=== PATIENT | female | born 1985 | race Caucasian/White ===

== ENCOUNTER → 2018-03-04 16:00 | Outpatient (CLI) | payer MEDICAID, SELFPAY ==
[2018-03-05 12:52] LABS: Group B Strep DNA By PCR POSITIVE (Negative); Probe Check PASS
== END ==
PROVIDERS: Visit Provider Obstetrics & Gynecology
DX: Z36.85 Encounter for antenatal screening for Streptococcus B (principal)
CPT/HCPCS: 87653

== ENCOUNTER 2018-03-05 10:16 | Inpatient (IN) | payer MEDICAID, SELFPAY ==
[2018-03-05] VITALS (21 sets, daily range): BP systolic 92–119; BP diastolic 47–70; PULSE 74–97; RESP 16–74; TEMP 36.2–36.8; O2SAT 95–100; BMI 28.4
[2018-03-05] MEDS: Lactated Ringers 1,000 ML 999 ML IV (11:15)
[2018-03-05 11:30] LABS: Absolute Lymphocyte Count 2.56 X10^3/ul (0.83-4.51); Absolute Neutrophil Count 11.7 X10^3/uL (2.0-7.7); Basophil# 0.02 X10^3/uL; Basophil% 0.1 % (0-1); Eosinophil# 0.16 X10^3/uL; Eosinophils% 1.1 % (0-5); Hematocrit 30.8 % (37-47); Hemoglobin 10.5 g/dl (12.0-15.0); Lymphocyte # 2.56 X10^3/ul (4.0); Mean Corp Hgb Conc 34.1 g/gl (32-36); Mean Corpuscular Hgb 29.7 pg (27.0-32.0); Mean Platelet Vol. 9.8 fl (6.2-12.0); Monocyte# 0.61 X10^3/uL; Neutrophil # 11.69 X10^3/uL (2.7-7.7); Neutrophil % 77.6 % (47-70); Platelet Count 515 K/mm3 (150-450); RBC Distribution Width CV 12.8 % (11.6-14.6); RBC Distribution Width SD 41.4 fl (35.1-43.9); Red Blood Count 3.54 M/mm3 (4.2-5.4); White Blood Count 15.1 K/mm3 (4.4-11.0)
[2018-03-05 11:36] LABS: Prothrombin Time (Protime)PT. 12.9 SECONDS (11.7-14.9)
[2018-03-05 11:37] LABS: Partial Thromboplast Time 30.5 Seconds (24.1-36.2)
[2018-03-05 11:38] LABS: Differential Indicated SCAN CRITERIA MET; POSITIVE COUNT NO; POSITIVE DIFFERENTIAL NO; POSITIVE MORPHOLOGY YES
[2018-03-05] MEDS: Lactated Ringers 1,000 ML 150 ML IV ×2 (12:00→15:40)
[2018-03-05] MEDS: Cefazolin 2 GM in 0.9% Normal Saline 100 ML IV (12:10)
[2018-03-05] MEDS: Sodium Citrate/Citric Acid 30 ML UDC PO (12:15)
[2018-03-05] MEDS: Oxytocin 30 units/NS 500 ml 30 UNITS/500 ML IV.SOLN 167 UNITS IV (12:30)
[2018-03-05] MEDS: Lactated Ringers 1,000 ML 100 ML IV (13:15)
--- NOTE | 2018-03-05 18:20 | PCM.OP.BLANK ---
Operative Report Date of Procedure: 03/05/18 Surgeon: Jordan Alvarez MD, FACOG Assistant Associate Professor: PURVI Turner Anesthesia: Geronimo Skaggs CRNA Anesthesia: Spinal with Duramorph Pre-op Diagnosis: - -Prior Section, Desires Permanent Sterilization, Oligohydramnios, Prior Demise and Abruption Post-Op Diagnosis: - -Prior Section, Desires Permanent Sterilization, Oligohydramnios, Prior Demise and Abruption Procedure: Repeat Low Transverse Cervical Caesarean Section, Bilateral Tubal Occlusion with Filsche Clips Findings: Viable Male with Apgars of 9/9 in occiput anterior presentation with clear amniotic fluid and normal three-vessel placenta. Indication: This is a 32-year-old who presents for her third at 37+ weeks gestation for the above reasons. PARMINDER is about 3.5 cm, she has a grade 3 placenta and there is a history of demise for abruption at 39 weeks gestation. Patient is a smoker. The patient has been counseled regarding the risk and indications of this procedure including the possibility of bleeding infection and injury to surrounding structures such as bowel bladder. She also understands the permanent nature of a tubal and failure rate of 1-2 %. All questions were answered. Procedure: Patient was taken to the operating room where after spinal anesthesia was placed, the patient was prepped and draped in usual sterile fashion and a Borges catheter was placed. The abdomen was entered through the patient's prior Pfannenstiel incision and peritoneum was entered bluntly. After developing a bladder flap on the lower uterine segment a low transverse incision was made on the uterus and head was easily delivered onto the operative field the nose mouth and oropharynx were bulb suctioned. Subsequently a viable male infant was born with Apgars of 9/9. The was noted to cry move all extremities vigorously on the operative field. The umbilical cord was doubly clamped and ligated and infant handed to the nursery personnel who were present for the delivery. Placenta was delivered and noted to be 3 vessels and normal. Uterus was exteriorized and remaining placental tissue was removed. The uterus was then closed in 2 layers first with running locked 0 Vicryl suture followed by a second imbricating layer with 0 Vicryl suture. 0 Vicryl suture was then used in a horizontal mattress interrupted fashion to affect final hemostasis of the uterine incision line. Normal fallopian tubes and ovaries were visualized Filsche clips place 1-2 cm from the uterine fundus; the uterus was returned to the pelvis. Hemostasis was noted and rectus abdominis muscles were reapproximated in the midline with interrupted Number 0 Vicryl suture in a horizontal mattress fashion. Fascia was closed with running Number 1 PDS Strata fix suture. Subcutaneous tissue was irrigated with copious amouts of saline solution and then closed with running 3-0 Vicryl suture. Skin was closed with 4-0 monocryl suture in a running subcuticular fashion. Steri strips, telfa, and tape were placed across the incision. The patient tolerated the procedure well and was taken to the recovery room in satisfactory condition. Sponge, needle, and instrument counts were all reportedly correct. EBL was <500 cc. Cefotan 2 gms IV was given prior to the procedure. Spicemen to Pathology: None Complications: None
--- NOTE | 2018-03-05 18:28 | DCINST_ITS ---
Discharge Diet: No Restrictions Discharge Activity: May not drive while taking narcotic pain medications., May Shower, May Take a Tub Bath May resume sexual activity in: 4-6 weeks Lifting Restrictions: 20 pounds Additional Activity Instructions:: Nothing in the vagina for 4-6 weeks. You may return to work/school in 6 weeks. Call your doctor if your incision/area has: Continuous Slow Oozing, Sudden Increased Bleeding, Increased Pain/ Swelling, Increased Redness, Foul Smelling Discharge Call your doctor if you observe: Fever of 101 or Higher, Inability to urinate, Inability to have a bowel movement, Using more than one pad per hour Additional Instructions: If you experience any of the following, contact your healthcare provider. * Bleeding that soaks a pad every hour for 2 hours * Unrelieved incision or abdominal pain * Swelling, redness, discharge or bleeding from your incision or episiotomy site * Your incision begins to separate * Problems urinating (including inability to urinate or burning while urinating) . * Visual changes * Severe headache * Flu-like symptoms * Pain or redness in one of both of your breasts * Pain, warmth, tenderness or swelling in your legs, especially the calf area * Frequent nausea and vomiting * Symptoms of depression or anxiety If you experience any of the following, call 911 or go to the nearest Emergency Room. * Chest pain * Problems breathing * Seizure activity * Partial or complete paralysis of a body part, slurred speech, weakness or drooping of the face, or a sudden inability to walk or hold your balance Allergies/Adverse Reactions: Allergies tramadol Allergy (Verified 03/05/18 11:31) Itching PC Allergy (Uncoded 04/06/16 09:56) Hives Penicillin Medications to take at Discharge Vit No.124/Iron/FA [ Vitamin Tablet] 1 each PO DAILY 03/16/15 Docusate Sodium [Colace] 100 mg PO BID PRN PRN #60 cap 03/05/18 Oxycodone [Oxyir] 5 mg PO Q6H PRN PRN 7 Days #20 tab 03/05/18 The following prescriptions were given: Oxycodone [Oxyir] 5 mg PO Q6H PRN PRN 7 Days #20 tab PRN Reason: Mod-Severe Pain (-07/02) Docusate Sodium [Colace] 100 mg PO BID PRN PRN #60 cap PRN Reason: Constipation Follow-Up: Call to make an appointment with your doctor for an incision check in 1-2 weeks. You will also need a 6 week post- follow up appointment. Please Follow Up With: Jordan Alvarez MD - [phone] When: Call to make an appointment for an incision check in 2 weeks.
[2018-03-05] MEDS: Ketorolac 30 MG/ML Syringe IV (19:30)
[2018-03-06] VITALS (10 sets, daily range): BP systolic 102–117; BP diastolic 45–72; PULSE 61–97; RESP 16–18; TEMP 36.3–36.6; O2SAT 94–100
[2018-03-06] MEDS: Ketorolac 30 MG/ML Syringe IV ×2 (00:56→07:23)
[2018-03-06] MEDS: Lactated Ringers 1,000 ML 100 ML IV (04:38)
[2018-03-06 06:11] LABS: Hematocrit 25.3 % (37-47); Hemoglobin 8.5 g/dl (12.0-15.0); Mean Corp Hgb Conc 33.6 g/gl (32-36); Mean Corpuscular Hgb 29.4 pg (27.0-32.0); Mean Corpuscular Volume 87.5 fL (81-99); Mean Platelet Vol. 9.6 fl (6.2-12.0); Platelet Count 449 K/mm3 (150-450); RBC Distribution Width SD 42.3 fl (35.1-43.9); Red Blood Count 2.89 M/mm3 (4.2-5.4); White Blood Count 13.7 K/mm3 (4.4-11.0)
[2018-03-06 06:55] LABS: Scan Indicated on CBC? Y/N NO
--- NOTE | 2018-03-06 09:20 | PN.OBGYN_ITS ---
Subjective: Patient without complaints. Tolerating diet well. Positive flatus. Thinking about going home later today if baby is able to go. - Physical Exam Vital Signs AF, VSS Temp Pulse Resp BP Pulse Ox 97.9 F 77 18 106/45 L 97 03/05/18 23:45 03/06/18 05:00 03/06/18 03:48 03/06/18 03:48 03/06/18 05:00 Oxygen Delivery Method Room Air Weight: 176 lb 2.389 oz Body Mass Index (BMI) 28.4 Intake and Output for Last 24 Hours 03/04/18 03/05/18 03/06/18 23:59 23:59 23:59 Intake Total 2915 / 2915 600 / 600 Output Total 1450 / 1450 650 / 650 Balance 1465 / 1465 -50 / -50 Laboratory Tests Past 24 Hrs 03/05/18 03/05/18 03/05/18 11:10 11:10 11:10 WBC 15.1 H RBC 3.54 L Hgb 10.5 L Hct 30.8 L MCV 87.0 MCH 29.7 MCHC 34.1 RDW 12.8 RDW Differential 41.4 Plt Count 515 H MPV 9.8 Immature Gran % (Auto) 0.200 Neut % (Auto) 77.6 H Lymph % (Auto) 17.0 L [place] % (Auto) 4.0 Eos % (Auto) 1.1 Baso % (Auto) 0.1 Absolute Neuts (auto) 11.7 H Absolute Lymphs (auto) 2.56 Total Counted Not Reportable PT 12.9 INR 1.0 APTT 30.5 Blood Type O POSITIVE Antibody Screen NEGATIVE 03/06/18 05:20 WBC 13.7 H RBC 2.89 L Hgb 8.5 L Hct 25.3 L MCV 87.5 MCH 29.4 MCHC 33.6 RDW 13.0 RDW Differential 42.3 Plt Count 449 MPV 9.6 Immature Gran % (Auto) Neut % (Auto) Lymph % (Auto) [place] % (Auto) Eos % (Auto) Baso % (Auto) Absolute Neuts (auto) Absolute Lymphs (auto) Total Counted PT INR APTT Blood Type Antibody Screen Wound is clean, dry, intact. Good urine output. Hemoglobin okay. Medical Necessity - Tobacco Use Smoking Status: Light Smoker (<10/day) Assessment/Plan Doing well postoperative day #1 status post repeat . We will continue present care. Home-going instructions given should patient desire to go home later today if baby is able to go.
--- NOTE | 2018-03-06 09:46 | NURSING ---
Dr. Alvarez in to see patient at discharge. patient requests IV to be d/c'd. She would like to be on oral pain medication instead. Dr. Alvarez said that is ok. Patient will be able to go home today if she would like to and if infant is able to be d/c'd.
[2018-03-06] MEDS: Senna/Docusate Sodium 1 Tablet PO (12:39)
[2018-03-06] MEDS: oxyCODONE 5 MG Tablet PO ×2 (12:40→23:45)
--- NOTE | 2018-03-06 15:32 | CASEMGMT ---
Social Work Assessment Labor and Delivery Unit Date of Referral: 03/06/2018 Time of Referral: 0830 Referred By: verbal notification from nursing Date of Intervention: 03/06/18 Time of Intervention: 1500 Reason for Referral: maternal history of anxiety History obtained from: Medical record and mother of baby (MOB) Dahlia Diaz Household composition: MOB, 4 older children, and then father of baby (FOB) sometimes stays in the home. MOB plans to take to this home at time of discharge. Patient's parent/guardian status: MOB reports has been with FOB Akbar Burkett for the last years. MOB reports due to housing assistance that MOB receives, it is easier not to have Akbar to the lease. Therefore, Akbar is only at the home parts coordinator, as cannot technically live there. MOB reports Akbar does come over to help out when MOB needs it and reports to have a good relationship for the most part with Akbar. MOB denies any form of abuse in this relationship. MOB and FOB share three children together, 2 of whom are living. MOBs minor children are: Larry, born 04/2003, his father is not involved, has been deported Rodo, born 02/2006, his father is only intermittently involved, nothing that MOB depends on Sona, born 03/2008, whose father does have regular visitation and is dependable with visits, also willing to help MOB if MOB would need some extra help with Sona. Noelle, born 2013, at , delivering Noelle at 39 weeks gestation. MOB experienced a placental abruption with this child. Father is current FOB. Avila Burkett, born 04/09/16, father is current FOB. , Harriett Burkett, born 02[birth year]23-2018. Medical History: MOB is G8, P5 to 6 with 5 living children and 1 . MOB started care at 10 weeks gestation. , Harriett, born at 37 weeks gestation, weighing 5 pounds at , and Apgars 9 and 9 at 1 and 5 minutes of life. Educational Status: MOB had GED, reports ability to read, to write, and to understand what is read. 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 FOB works for [employer] delivering auto parts. Infant Supplies: MOB reports to have needed baby supplies including a car seat, rock-n-play, and pack-n-play with bassinet attachment, clothing, diapers, wipes, bottles, and the reports ability to purchase formula at time of discharge. Childcare/Caregiver(s): MOB as well as a day care provider that MOB already has in place. Transportation: MOB reports to have a license and a vehicle. Programs/Agencies Involved: MOB has Medicaid and food card through [facility]. Denies any other agency involvement. MOB reports to know about Head start services, WIC, and counseling options locally. Children Services/Legal Issues: MOB denies any legal issues and denies past or present involvement with any children services agency. Behavioral Health Issues: MOB admits to long history of depression and then since Noelle to have anxiety. MOB reports doctors have tried to prescribe antidepressants in the past, but MOB reports has chosen not to take medicine, liking to manage things on own. MOB reports after Noelle, and then after Gramajo did have some short course prescription of Ativan, that MOB reports used only when absolutely needed to help with anxiety. MOB reports to feel okay right now, but if symptoms of anxiety and depression surface, to the point that MOB feels unable to cope on own will seek out some additional assistance through doctors office. MOB reports to cope by distracting self, finding other things to do, deep breathing, and talking to best friend Jillian. MOB denies any history of suicidal ideation, plan, or intent. MBO reports to value life too much and wants to be present for her children. MOB denies any alcohol usage during and reports last drink was prior to Tariq . MOB denies illicit drug use. MOB endorses about a half a pack per day or less of tobacco usage during . Drug Screens: none noted in the care record. Family/Social Stressors: MOB reports did have higher irritability this , getting frustrated with FOB over little things that normally would not bother MOB. Other than this, MOB does not report any new or recent stressors. MOB reports limited support from own family, particularly MOBs mother, who MOB reports is causing stress since delivery as MOBs mom did not follow through to help FOB with things at home, instead chose alcohol over helping family. MOB reports to know that cannot control her mothers actions but it something that bothers MOB. Support Systems: MOB reports FOB is primary practical support person. MOB also has a good and reliable day care provider. MOB reports best friend Jillian is primary emotional support person. ASSESSMENT: MOB reports to have a plan in place for discharge. MOB report FOB will be staying at the home for some time to help out. Jillian has one week off of work to be around to help. MOB reports the day care provider will be taking the 3 smaller children a couple of days a week for the next few weeks, just to give MOB a break. MOB reports to have supplies at home, to have support available, and to feel that depression and anxiety are manageable. MOB reports intent and willingness to let healthcare providers know if symptoms increase or if MOB needs additional help. MOB able to identify health coping skills as well. MOB receptive to social work visit as evidenced by spontaneous conversation, nondefensive in conversation, and willingness to talk about past stressors. MOB held good eye contact, level appearing mood, and appropriate affect. MOB did became tearful when talking about children and love for children. MOB acknowledges that has anxiety present and how this anxiety at times impacts self. MOB voices love for all children including , and reports looking forward to going home to be with children. PLAN: MOB and baby to home when ready for discharge Provided depression packet, tips for self-care, and online support for both MOB and FOB to access if needed or desired Provided [facility] resource list, information on shaken baby/tips to soothe baby, safe sleeping, and local mental health providers. No other services requested or indicated. -DURAN Gamez, JERZY
[2018-03-06] MEDS: Ibuprofen 600 MG Tablet PO ×2 (16:02→22:47)
--- NOTE | 2018-03-06 19:15 | NURSING ---
Bedside shift report given to Cheryl Mcarthur RN. She will assume care at this time.
[2018-03-07 02:00] VITALS: BP 99/56; PULSE 68; RESP 16; TEMP 36.3; O2SAT 99
[2018-03-07] MEDS: oxyCODONE 5 MG Tablet PO (05:26)
--- NOTE | 2018-03-07 06:43 | PCM.PN.OB ---
Subjective: POD#2 Repeat C/S and BTO. Doing ok. States she is sore and more sore since she had her tubes tied this time. Bottle feeding. Would like to go home today . - Physical Exam General: Alert, Oriented x3, Cooperative, No apparent distress HEENT: Atraumatic Neck: Supple Abdomen: Soft - Fundus firm NT at inferior to umbilicus Skin: Incision - CDI. Steristrips intact. Neurological: Cranial nerves II-XII grossly intact Psych/Mental Status: Normal Affect Vital Signs Temp Pulse Resp BP Pulse Ox 97.4 F L 68 16 99/56 L 99 //18 02:00 03/07/18 02:00 03/07/18 02:00 03/07/18 02:00 03/07/18 02:00 Oxygen Delivery Method Room Air Weight: 79.9 kg Body Mass Index (BMI) 28.4 Intake and Output for Last 24 Hours //18 //18 03/07/18 23:59 23:59 23:59 Intake Total 2915 / 2915 1524 / 1524 Output Total 1450 / 1450 1750 / 1750 Balance 1465 / 1465 -226 / -226 Laboratory Tests Past 24 Hrs //18 05:20 WBC 13.7 H RBC 2.89 L Hgb 8.5 L Hct 25.3 L MCV 87.5 MCH 29.4 MCHC 33.6 RDW 13.0 RDW Differential 42.3 Plt Count 449 MPV 9.6 Medical Necessity - Tobacco Use Smoking Status: Light Smoker (<10/day) Assessment/Plan POD#2 Repeat C/S and BTO Stable postop. Dischg home. RTO in 2 wk for postop check as planned , prn sooner.
--- NOTE | 2018-03-07 06:46 | PCM.DC.SUM ---
Discharge Date and Diagnosis Date of Admission: 03/05/18 - 37 wk oligo. prior C/S h/o 39 wk stillbirth. Sterilization request Date of Discharge: 03/07/18 - S/P repeat C/S and BPS Hospital Course and Treatment Operations: - - Repeat C/S and BPS Summary of Care Provided: The patient is a 32 year old G8:5AB2 female presents at 37+ wk for repeat C/S, due to oligohydramnios. She has had two prior C/S. H/O term stillbirth d/t abruption. Smoker. Also requesting bilateral tubal ligation. Admitted for repeat C/S at 37 wk d/t oligohydramnios. Delivered on 03/05/18 hernández viable male Ap 06/01. SGA vs IUGR with weight 4# 15 oz. Procedure uncomplicated with minimal blood loss. Iron deficiency anemia of , superimposed. Acute blood loss at surgery. Postoperative course uneventful . Incision healing well. AVSS. Requested dischg home on POD #2. Discharge Diet: No Restrictions Discharge Activity: May not drive while taking narcotic pain medications., May Shower, May Take a Tub Bath May resume sexual activity in: 4-6 weeks Additional Activity Instructions:: Nothing in the vagina for 4-6 weeks. You may return to work/school in 6 weeks. Call your doctor if your incision/area has: Continuous Slow Oozing, Sudden Increased Bleeding, Increased Pain/ Swelling, Increased Redness, Foul Smelling Discharge Call your doctor if you observe: Fever of 101 or Higher, Inability to urinate, Inability to have a bowel movement, Using more than one pad per hour Home Medications: Medications to take at Discharge Vit No.124/Iron/FA [ Vitamin Tablet] 1 each PO DAILY 03/16/15 Docusate Sodium [Colace] 100 mg PO BID PRN PRN #60 cap 03/05/18 Oxycodone [Oxyir] 5 mg PO Q6H PRN PRN 7 Days #20 tab 03/05/18 Following Prescrptions Were Given to Patient: Oxycodone [Oxyir] 5 mg PO Q6H PRN PRN 7 Days #20 tab PRN Reason: Mod-Severe Pain (4-10/10) Docusate Sodium [Colace] 100 mg PO BID PRN PRN #60 cap PRN Reason: Constipation Please Follow Up With: Jordan Alvarez MD - [phone] When: Call to make an appointment for an incision check in 2 weeks. Medical Necessity - Tobacco Use Smoking Status: Light Smoker (<10/day) Meaningful Use Info Meaningful Use Diagnoses (Choose all that apply): None applicable
[2018-03-07] MEDS: Senna/Docusate Sodium 1 Tablet PO (08:18)
[2018-03-07] MEDS: Ibuprofen 600 MG Tablet PO (08:19)
[2018-03-07 09:01] VITALS: BP 114/67; PULSE 75; RESP 16; TEMP 36.6
== END 2018-03-07 09:30 | disposition home or self-care (01) | DRG 370 ==
PROVIDERS: Admitting Provider Obstetrics & Gynecology; Visit Provider Obstetrics & Gynecology
DX: O41.03X0 Oligohydramnios, third trimester, not applicable or unspecified (principal); O99.02 Anemia complicating childbirth; D62 Acute posthemorrhagic anemia; O90.81 Anemia of the puerperium; O99.334 Smoking (tobacco) complicating childbirth; Z3A.37 37 weeks gestation of pregnancy; Z37.0 Single live birth; Z36.85 Encounter for antenatal screening for Streptococcus B
CPT/HCPCS: 85025; 85027; 85610; 85730; 86850; 86900; 87653; 99218; J7120; G0378; J2405

== ENCOUNTER → 2018-04-15 10:23 | Outpatient (CLI) | payer MEDICAID, SELFPAY ==
[2018-04-19 14:47] LABS: HPV Reflexed? NOT INDICATED
== END ==
PROVIDERS: Visit Provider Obstetrics & Gynecology
DX: Z12.4 Encounter for screening for malignant neoplasm of cervix (principal)
CPT/HCPCS: 88175; G0145

== ENCOUNTER → 2019-05-12 | Outpatient (CLI) | payer MEDICAID, SELFPAY ==
[2019-05-13 15:04] LABS: Chlamydia Trachomatis by PCR Negative (Negative); Neisserai gonorrhoeae by PCR Positive (Negative); Probe Check PASS
== END | disposition home or self-care (01) ==
LOC: LABSPEC 05-13 10:12
PROVIDERS: Visit Provider Obstetrics & Gynecology
DX: Z11.3 Encounter for screening for infections with a predominantly sexual mode of transmission (principal)
CPT/HCPCS: 87491; 87591

== ENCOUNTER → 2021-04-11 16:37 | Outpatient (CLI) | payer MEDICAID, SELFPAY ==
[2021-04-11 16:23] VITALS: BMI 28.4
--- NOTE | 2021-04-11 16:39 | RAD_ITS ---
HISTORY: left knee pain EXAMINATION/TECHNIQUE: XR Knee Complete 4 Views or More: COMPARISON: Left knee MRI October 07, 2012 FINDINGS: BONES/JOINTS: No acute fracture or dislocation. The osteochondral lesion at the medial femoral condyle is now visible with slight extrusion of the osteochondral fragment. Preservation of the joint spaces. SOFT TISSUES: No soft tissue swelling or gas. No radiopaque foreign body. RAD/Knee 4 or More Views IMPRESSION: Osteochondral lesion left medial femoral condyle with at least partial extrusion of the osteochondral fragment. at 1718 Reported and signed by: Roe Huynh MD Electronically Signed: Roe Huynh MD at 17:17 EDT Tel , Service support ,
== END ==
PROVIDERS: Referring Provider Physician Assistant Surgical; Visit Provider Physician Assistant Surgical
DX: S86.912A Strain of unspecified muscle(s) and tendon(s) at lower leg level, left leg, initial encounter (principal)
CPT/HCPCS: 73564

== ENCOUNTER → 2023-03-20 | Outpatient (CLI) | payer MEDICAID, SELFPAY ==
[2023-03-20 12:31] LABS: Absolute Lymphocyte Count 2.97 X10^3/uL (0.83-4.51); Absolute Neutrophil Count 5.9 X10^3/uL (2.0-7.7); Basophil# 0.08 X10^3/uL; Basophil% 0.8 % (0-1); Eosinophil# 0.49 X10^3/uL; Eosinophils% 4.8 % (0-5); Hematocrit 42.5 % (37-47); Hemoglobin 14.3 g/dL (12.0-15.0); Lymphocyte # 2.97 X10^3/ul (0.83-4.51); Lymphocyte % 28.9 % (19-41); Mean Corp Hgb Conc 33.6 g/dL (32-36); Mean Corpuscular Hgb 31.8 pg (27.0-32.0); Mean Corpuscular Volume 94.4 fL (81-99); Mean Platelet Vol. 10.2 fl (6.2-12.0); Monocyte# 0.79 X10^3/uL; Monocyte% 7.7 % (0-10); NRBC Flagged by Analyzer 0 % (0-5); Neutrophil # 5.92 X10^3/uL (2.7-7.7); Neutrophil % 57.4 % (47-70); Platelet Count 338 K/mm3 (150-450); RBC Distribution Width CV 13.2 % (11.6-14.6); RBC Distribution Width SD 45.9 fl (35.1-43.9); White Blood Count 10.3 K/mm3 (4.4-11.0)
[2023-03-20 13:03] LABS: Anion Gap 5 (5-15); BUN 8 mg/dL (7-18); BUN/Creat Ratio 10.7 RATIO (10-20); Calcium,Total 9.9 mg/dL (8.5-10.1); Chloride 108 mmol/L (98-107); Creatinine, Serum 0.75 mg/dL (0.55-1.02); EST Glomerular Filtration Rate 92 mL/min (>60); Est Glom Filt Rate - Afr Amer 111 mL/min (>60); Glucose 84 mg/dL (74-106); Potassium 4.3 mmol/L (3.5-5.1); Sodium Level 137 mmol/L (136-145)
[2023-03-20 13:30] LABS: Hepatitis B Surface Antibody Non-Reactive; Hepatitis B Surface Antigen Non-Reactive (Nonreactive)
[2023-03-22 19:07] LABS: Hepatitis B Core Ab Total Negative (Negative); QNTFERON TB Mitogen Value > 10.00 IU/mL (.); QNTFERON TB Nil Value 0 IU/mL (.); QNTFERON TB1+ Ag Value 0.01 IU/mL (.); QNTFERON TB2+ Ag Value 0 IU/mL (.); QNTIFERON TB Positive Criteria Negative (Negative)
== END | disposition home or self-care (01) ==
PROVIDERS: PCP Nurse Practitioner Family; Referring Provider Physician Assistant; Visit Provider Physician Assistant
DX: L40.0 Psoriasis vulgaris (principal); Z79.899 Other long term (current) drug therapy; Z79.620 Long term (current) use of immunosuppressive biologic
CPT/HCPCS: 36415; 80048; 85025; 86480; 86704; 86706; 87340